=== PATIENT | female | born 1980 | race African-American/Black ===

== ENCOUNTER 2021-10-24 15:28 | Emergency (ER) | payer OTHER ==
[~2021-10-24] VITALS: Ht 170.2 cm; Wt 93.0 kg
[2021-10-24] MEDS ORDERED: METR-167 MT (17:38)
[2021-10-24 17:47] VITALS: BP 142/89
[2021-10-27 07:13] LABS: NEISSERIA GONORRHOEAE NAA Negative (Negative)
== END 2021-10-24 17:48 | disposition home or self-care (01) ==
LOC: ER 15:28
DX: N76.0 Acute vaginitis (principal); Z98.890 Other specified postprocedural states
CPT/HCPCS: 81025; 87210; 87491; 87591; 99284; Z7610